=== PATIENT | male | born 1975 | race Caucasian/White ===

== ENCOUNTER 2021-10-10 15:15 | Emergency (ER) | payer MEDICAID ==
[~2021-10-10] VITALS: Ht 172.7 cm; Wt 90.7 kg
--- NOTE | 2021-10-10 15:15 | NUR ---
BROUGHT BACK TO OUTSIDE TRIAGE TENT AND TRIAGED. AWAITING ER BED AVAILABILITY
[2021-10-10 15:20] VITALS: BP_SYST 111
--- NOTE | 2021-10-10 18:30 | NUR ---
Pt placed to ER bed 08. Pt c/o generalized weakness, chest discomfort, and headache. Pt states that he was seen at [facility] yesterday then discharged home. Pt also states that he tested positive for COVID-19 on 10/02/21. Pt in respiratory isolation.
--- NOTE | 2021-10-10 18:45 | NUR ---
Dr. Cardona at bedside.
[2021-10-10] MEDS ORDERED: METOCLOPRAMIDE HCL 10 MG/2 ML VIAL IVP ONE (19:00)
[2021-10-10] MEDS ORDERED: DIPHENHYDRAMINE INJ 50 MG/ML VIAL IVP ONE (19:00)
[2021-10-10] MEDS ORDERED: NACL 0.9% 1,000 ML IV ONE (19:00)
[2021-10-10] MEDS ORDERED: PANTOPRAZOLE SODIUM 40 MG/VIAL (PROTONIX) IVP ONE (19:00)
--- NOTE | 2021-10-10 20:25 | NUR ---
# 20 gauge angiocath placed to RAC. Use of asceptic technique. Opsite placed over site. Blood return noted. Flushed with 10 cc of normal saline. No evidence of infiltration noted. Patient tolerated well.
[2021-10-10 20:34] LABS: BASOPHILS % (AUTO) 0.2 % (0.0-2.0); EOSINOPHILS % (AUTO) 0.1 % (0.0-4.0); HEMATOCRIT 48.1 % (36-54); HEMOGLOBIN 16.9 g/dL (14.0-18.0); LYMPHOCYTES # (AUTO) 0.6 K/uL (1.0-5.5); LYMPHOCYTES % (AUTO) 12.2 % (20.5-51.5); MEAN CORPUSCULAR HEMOGLOBIN 33 pg (27-31); MEAN CORPUSCULAR HGB CONC 35 % (32-36); MEAN CORPUSCULAR VOLUME 94 fL (79.0-98.0); MONOCYTES # (AUTO) 0.4 K/uL (0.0-1.0); MONOCYTES % (AUTO) 7.1 % (1.7-9.3); NEUTROPHILS % (AUTO) 80.4 % (40.0-70.0); PLATELET COUNT (AUTO) 218 K/uL (130-430); RED BLOOD CELL COUNT(AUTO) 5.09 MIL/uL (4.2-6.2); RED CELL DISTRIBUTION WIDTH 12.6 % (9.0-15.0)
--- NOTE | 2021-10-10 20:50 | NUR ---
B/P 160/111 and pt c/o H/A. Dr. Cardona made aware.
[2021-10-10 20:55] LABS: CALCIUM 8.9 mg/dL (8.4-11.0); CREATININE 0.88 mg/dL (0.55-1.30); POTASSIUM 4.6 mmol/L (3.5-5.1)
[2021-10-10] MEDS ORDERED: MORPHINE 2 MG/ML INJ. SYRINGE IVP ONE (21:00)
[2021-10-10 21:01] LABS: ALBUMIN 3.4 g/dL (3.4-4.8); TOTAL BILIRUBIN 0.6 mg/dL (0.0-1.0)
--- NOTE | 2021-10-10 21:40 | NUR ---
Pt resting quietly, even and non-labored respirations, VSS. B/P 146/84.
[2021-10-10] MEDS ORDERED: AZITHROMYCIN 500 MG/VIAL (ZITHROMAX) IV ONE (21:45)
[2021-10-10] MEDS ORDERED: AZITHROMYCIN 500 MG in NS 250 ML IV ONE (21:45)
[2021-10-10] MEDS ORDERED: ZIT250 PO (22:34)
[2021-10-10] MEDS ORDERED: PROC10TA13 PO (22:34)
[2021-10-10] MEDS ORDERED: ALBMDI INH (22:35)
[2021-10-10 23:17] VITALS: BP_SYST 124
--- NOTE | 2021-10-10 23:17 | NUR ---
Patient given written and verbal discharge instructions and verbalizes understanding. ER MD discussed with patient the results and treatment provided. Patient in stable condition. ID arm band removed. IV catheter removed intact and dressing applied, no active bleeding. Rx of Albuterol, compazine, zithromax given. Patient educated on pain management and to follow up with PMD. Pain Scale 2/10. Opportunity for questions provided and answered. Medication side effect fact sheet provided.
[2021-10-10] MEDS ORDERED: PHEDM120 PO (23:30)
== END 2021-10-10 23:17 | disposition home or self-care (01) ==
LOC: SED 15:15
DX: U07.1 COVID-19 (principal); Z88.0 Allergy status to penicillin
CPT/HCPCS: 36415; 71045; 80053; 83605; 85025; 87040; 93005; 96361; 96365; 96375; 99285; C9113; J0456; J1200; J2270; J2765; J7030